=== PATIENT | male | born 1935 | race Caucasian/White ===

== ENCOUNTER 2022-04-02 16:03 | Outpatient (CLI) | payer MEDICARE, OTHER | END 2022-04-02 16:04 | disposition home or self-care (01) | LOC: CSHLAB 16:03 | PROVIDERS: ATTEND Orthopaedic Surgery | DX: Z01.818 Encounter for other preprocedural examination (principal); Z20.822 Contact with and (suspected) exposure to COVID-19; M54.50 Low back pain, unspecified | CPT/HCPCS: 93005; 93010; U0003; U0005 ==

== ENCOUNTER 2022-04-07 08:14 | Day surgery (SDC) | payer MEDICARE, OTHER ==
[2022-04-03 13:54] VITALS: BMI 25.1
[2022-04-07] MEDS ORDERED: Lidocaine 1% MPF 2 ML VIAL ONE (08:35)
[2022-04-07] MEDS ORDERED: Famotidine/PF 20 mg/2ml Vial ONE (08:36)
[2022-04-07] MEDS ORDERED: Bupivacaine 0.25% HCL 30 ML VIAL ONE (09:49)
[2022-04-07] MEDS ORDERED: EPINEPHrine 1 MG/ML AMP ONE (09:49)
[2022-04-07] MEDS ORDERED: Fentanyl 250 MCG/5 ML VIAL ONE (10:26)
[2022-04-07] MEDS ORDERED: Propofol 1,000 MG/100 ML VIAL IV ONE (10:26)
[2022-04-07] MEDS ORDERED: Ketamine 50 MG/ML (10ML VIAL) ONE (10:26)
[2022-04-07] MEDS ORDERED: PROPOFOL 20 ML ONE (10:26)
[2022-04-07] MEDS ORDERED: CEFAZOLIN 2 GM VIAL ONE (10:27)
[2022-04-07] MEDS ORDERED: Lidocaine 1% PF 5 ML VIAL ONE (10:30)
[2022-04-07] MEDS ORDERED: Dexamethasone 20 MG/5 ML VIAL ONE ×2 (10:30→11:11)
[2022-04-07] MEDS ORDERED: Ondansetron PF 4 MG/2 ML Vial ONE ×2 (10:30→11:11)
[2022-04-07] MEDS ORDERED: Rocuronium Bromide 10 MG/ML (10ML VIAL) ONE (10:30)
[2022-04-07] MEDS ORDERED: ePHEDrine Sulfate 50 MG/10 ML VIAL ONE (10:48)
[2022-04-07] MEDS ORDERED: SUGAMMADEX SODIUM 200 MG/2 ML VIAL ONE (11:25)
[2022-04-07] MEDS ORDERED: Lidocaine 2% PF 100 mg/5 ml Syringe ONE (12:59)
[2022-04-07] MEDS ORDERED: HYDROcodone/Acetaminophen 10/325 mg Tablet PO PRN (14:01)
[2022-04-07] MEDS ORDERED: Acetaminophen 325 MG TAB PO PRN (14:01)
[2022-04-07] MEDS ORDERED: ceFAZolin 2 GM/Dextrose 50 ML 2 GM in Premix Bag 1 BAG IVPB SCH (14:15)
[2022-04-07] MEDS ORDERED: Communication Order-Pharmacy FS SCH (14:15)
[2022-04-07] MEDS ORDERED: Ondansetron ODT 4 MG TAB PO PRN (14:27)
[2022-04-07] MEDS ORDERED: metFORMIN 500 MG TAB PO SCH (17:00)
[2022-04-07] MEDS ORDERED: Aspirin 81 mg Enteric Coated Tablet PO SCH (21:00)
[2022-04-07] MEDS ORDERED: Tamsulosin HCl 0.4 MG CAP PO SCH (21:00)
[2022-04-08] MEDS ORDERED: Non-Formulary Medication 1 EACH (Lisinopril [Lisinopril] 40 MG Tablet) PO SCH (09:00)
[2022-04-08] MEDS ORDERED: Aspirin Chewable 81 MG TAB PO SCH (09:00)
[2022-04-08] MEDS ORDERED: Atorvastatin Calcium 20 MG TAB PO SCH (09:00)
[2022-04-08] MEDS ORDERED: Hydrochlorothiazide 25 MG TAB PO SCH (09:00)
== END 2022-04-07 16:30 | disposition home or self-care (01) ==
LOC: CSHSDC 08:14
PROVIDERS: ATTEND Orthopaedic Surgery
PROC: 01NB0ZZ Release Lumbar Nerve, Open Approach (ICD-10-PCS; principal; 2022-04-07)
DX: M48.061 Spinal stenosis, lumbar region without neurogenic claudication (principal); M54.16 Radiculopathy, lumbar region; I10 Essential (primary) hypertension; I25.10 Atherosclerotic heart disease of native coronary artery without angina pectoris; E11.9 Type 2 diabetes mellitus without complications; N40.0 Benign prostatic hyperplasia without lower urinary tract symptoms; E78.5 Hyperlipidemia, unspecified; Z79.2 Long term (current) use of antibiotics; Z79.82 Long term (current) use of aspirin; Z79.84 Long term (current) use of oral hypoglycemic drugs; Z79.899 Other long term (current) drug therapy; Z95.0 Presence of cardiac pacemaker; Z95.1 Presence of aortocoronary bypass graft; Z95.5 Presence of coronary angioplasty implant and graft
CPT/HCPCS: 36416; 72100; 93005; 93010; C1889; J0171; J0690; J1100; J2001; J2405; J2704; J3010; S0020; S0028